=== PATIENT | female | born 1935 | race Caucasian/White ===

== ENCOUNTER → 2019-01-21 | Outpatient (CLI) | payer OTHER ==
[~2019-01-21] VITALS: Ht 160 cm; Wt 37.4 kg
[~2019-01-21] MED LIST: ALPRAZOLAM 0.50.5 M1 PO; ANORO ELLIPTA1 EACH INH; FOSAMAX 70 MG T70 MG PO; HYDROCODON-ACE1 EAC7 PO; LISINOPRIL2.5 MG PO; METFORMIN HCL500 MG PO; NEURONTIN100 MG PO; RAYOS5 MG PO; RESTORIL15 M1 PO; SERTRALINE HCL100 MG PO
[2019-01-21 13:55] VITALS: BP 104/63
--- NOTE | 2019-01-21 14:17 | NUR ---
Pain Clinic Assessment: 1. History of Osteoarthritis: HANDS History of Rheumatoid Arthritis: NONE 2. Height: 5 ft. 3 in. 160.0 cm. Weight: 82.4 lb. oz. 37.376 kg. Patient's BMI: 14.6 3. Vital Signs: BP: 104/63 Pulse: 102 Resp: 16 Temp: 02 Sat: 96 ECG Mon: 4. Pain Intensity: 0 SITTING 5. Fall Risk: Dizziness: N Needs help standing or walking: Y Fallen in the last 3 months: N Fall risk comments: 6. Patient on Blood Thinner: None 7. History of Hypertension: N 8. Opioid Therapy greater than 6 weeks: N Opiate Contract Signed: 9. Risk Assessment Tool Provided: LOW RISK 0/3 10. Functional Assessment Tool: 11. Recreational Drug Use: Never Drug Type: Tobacco Use: Never Smoker Tobacco Type: Amount or Packs/day: How Many Years: Alcohol Use: No Frequency: Quant:
--- NOTE | 2019-01-22 07:47 | HPC ---
[facility] [place] [address] PAIN MANAGEMENT CONSULTATION Name: RON DRIVER Room #: REG ENMA Wilcox#: [id number] Admission: 01/21/19 Attend Phys: Angel Bishop DO Discharge: Date of : 33 Report #: [id number] THIS REPORT FOR: //name// CC: [facility] physician/PCP Angel Nieto DATE OF SERVICE: 01/21/2019 CHIEF COMPLAINT: Low back pain and lower extremity pain. HISTORY OF PRESENT ILLNESS: As you know, the patient is a very pleasant 83-year-old female referred to our clinic for back pain that began spontaneously 12/03/2018. The patient states that she was in a forward flexed position when she sneezed, felt instantaneous low back pain, which ultimately took the patient to the Emergency Department. She was seen at [facility] for this back pain. She underwent imaging, which showed an L4 compression fracture and was established an outpatient appointment with one of the interventional radiologists to discuss the possibility of undergoing vertebral augmentation procedure. The patient states that she was evaluated by a physician with what she believes was Interventional Radiology and she was advised she is not a candidate for augmentation due to the posterior displaced fragment causing mild canal stenosis. She was then advised to follow up with her PCP. She was not offered any TLSO bracing or treatment at that visit, advised that there was nothing there could be done from an interventional standpoint. She followed up with her PCP who then referred the patient to our clinic to discuss options for treatment for the L4 compression fracture with mild retropulsion of the posterior fragment. The patient indicates pain is constant with intermittent brief and momentary exacerbations of symptoms. She describes the pain as shooting, sharp and stabbing, places current pain score at 0-10/10 depending on activity, daily average at 5/10, worst pain has been 10/10. The patient states that standing upright or putting any pressure on her leg exacerbate symptoms, sitting improves pain. She has been referred to our service to discuss treatment options for a spontaneous vertebral compression fracture at L4. PAST MEDICAL HISTORY: 1. Diabetes mellitus type 2. 2. Osteoporosis. 3. Depression. 4. Anxiety disorder. 5. Hypertension. 6. Diabetes mellitus type 2. 7. Insomnia. [address] [address] PAIN MANAGEMENT CONSULTATION Name: RON DRIVER [id number] Admission: 01/21/19 Attend Phys: Angel Bishop DO Discharge: Date of : 33 Report #: [id number] PAST SURGICAL HISTORY: None reported. SOCIAL HISTORY: The patient denies tobacco, alcohol, IV or illicit drug use. She is retired, retired years ago. She is accompanied by her and daughter present in room today. She is not receiving workmen's compensation or is trying to obtain disability benefit. She is not in litigation in regards to pain. REVIEW OF SYSTEMS: Positive for decrease in appetite, fatigue and weakness, wearing corrective eyewear, shortness of breath with walking or lying flat, hypertension, depression, diabetes mellitus type 2, slow to heal after cuts, bleeding and bruising tendencies, osteoporosis. All other review of systems negative per 12-point review of systems other than those listed in history of present illness. PAIN IMPACT SCORE: 47/70 indicating severe interference of daily activities secondary to pain. ALLERGIES: MORPHINE, BACTRIM, AMOXICILLIN. CURRENT MEDICATIONS: Temazepam 15 mg once a day, alendronate 70 mg per week, metformin 500 mg once a day, lisinopril 2.5 mg once a day, Anoro Ellipta 62.5/25 mcg inhaled once a day, gabapentin 100 mg 3 times a day, alprazolam 0.5 mg once a day, hydrocodone 5/325 one tab b.i.d. p.r.n., prednisone 5 mg once a day, sertraline 100 mg once a day. IMAGING: CT of the lumbar spine obtained 01/03/2019 shows moderate 40% acute compression fracture of the L4 vertebral body with posterior bony retropulsion resulting in mild central canal stenosis. There is mild 30%, chronic appearing compression deformity of L3 similar to x-rays of 04/25/2018. There is advanced degenerative changes of the lumbar spine, severe canal narrowing at L3-L4, moderate to severe central canal narrowing at L2-L3 and L4-L5, moderate to severe foraminal narrowing at the L5-S1 level. There is noted generalized bony demineralization, chronic pancreatitis, advanced diffuse calcific atherosclerosis also noted. PQRS: The patient has known arthritic changes of the lumbar spine, bilateral hands. No rheumatoid arthritis. She is placing pain score today anywhere from 9-10/10 depending on activity. She is a fall risk, has not had a fall in last 3 months. She is utilizing a roller walker for ambulation. She is not on blood thinners, but is treated for hypertension. She is on opioids, but not greater than 6 weeks. She has a low opiate addiction potential. Pain impact score remains 47/70. PHYSICAL EXAMINATION: VITAL SIGNS: Blood pressure 109/63, pulse is 102, respiratory rate 16 and [facility] [address] [place] [address] PAIN MANAGEMENT CONSULTATION Name: RON DRIVER Room #: REG ENMA Wilcox#: [id number] Admission: 01/21/19 Attend Phys: Angel Bishop DO Discharge: Date of : 33 Report #: [id number] unlabored. The patient is 96% on room air. Height 5 feet 3 inches tall, weight 82.4 pounds, BMI calculated 14.3. GENERAL: Well-developed, well-nourished, well-hydrated, thin, 83-year-old female, appears her stated age. She is in no acute distress, awake, alert and oriented x 3. Current pain score anywhere from 0-10/10 depending on activity. HEENT: Normocephalic, atraumatic. Pupils equal, round, reactive to light. NEUROLOGIC: Speech is fluent. The patient deemed a fair historian. LUNGS: Clear, no wheeze, rhonchi or rales. CARDIOVASCULAR: Tachycardic. No gallop, no rub. ABDOMEN: Soft, nontender, normal active bowel sounds. EXTREMITIES: Show no clubbing, no cyanosis, and no edema. MUSCULOSKELETAL: There is some palpatory tenderness noted over the paraspinal musculature of lower lumbar spine. No spinous process tenderness. There are no changes in skin color or texture overlying the lumbar spine. No ecchymosis. Lumbar provocation testing is met with increasing pain consistent with an L4 compression fracture that remains acute. Seated straight leg raising negative. Supine straight leg raising mildly positive on the right. Ynes's test negative. Modified Gaenslen's positive for axial low back pain. Ankle clonus negative. Babinski is negative. ASSESSMENT: 1. L4 compression fracture. 2. Severe central canal stenosis of lumbar spine. 3. Osteoporosis. 4. Intractable pain. PLAN: 1. The patient has been referred to our service by her primary care physician to discuss options for treatment given the findings of her recent CT examination. Treatment options for L4 compression fracture are as follows: We also discussed our concerns about the possibility of undergoing a lumbar epidural injection and we do not recommend this in a patient with an acute L4 compression fracture and known osteoporosis. This would be a significant contraindication. We discussed other options with the patient today, the following was discussed. 2. We discussed physical therapy along with medication management to maintain benefit and strength in the lumbar spine and pain medications to control pain with the fracture she currently has. We would not recommend this option, but did provide this as a potential treatment option as has been done in the past. We also discussed TLSO bracing with the [place] bracing system, the most tolerable of the bracing systems in our opinion. This in conjunction with medication management would offload the fracture weight allowing the fracture to heal in position with a 40% reduction in anterior wedging. Augmentation of the vertebral area, I agree with the previous physician is not amenable to either vertebroplasty or kyphoplasty given the posterior fracture with positioning within the central canal. This would preclude any augmentation procedures. [address] [address] PAIN MANAGEMENT CONSULTATION Name: RON DRIVER Room #: REG CLMadhuri Wilcox#: [id number] Admission: 01/21/19 Attend Phys: Angel Bishop DO Discharge: Date of : 33 Report #: [id number] After discussing the treatment options, the patient requested to begin with the TLSO bracing system and medication management. 3. The patient will be sent for TLSO bracing. We [facility] where they can size the patient today. We have taken the liberty of making the patient an appointment. She will go there from here today and be fitted for the device for the L4 compression fracture. The patient will need to wear this for at least 6 weeks. She will have to wear this while sitting and standing, but can remove it in a lying position. 4. We have taken the liberty of refilling Dr. Nieto's hydrocodone dosing. She can follow up with her PCP to continue this therapy. We have given the patient hydrocodone 5/325 one tab p.o. b.i.d. I have given the patient #60 tablets, no refills. The patient will watch for side effects of somnolence, decreased mental acuity, disorientation, confusion, mental slowing or constipation with use of the medication. If she notes any side effects, contact her PCP. 5. Given the patient's osteoporosis, her current dosing of prednisone and spontaneous compression fracture not only at the L4 level, which is acute, but the chronic L3 compression, she is not a candidate for epidural injections. The epidural injections as you are aware do provide some analgesic benefit, but also have a significant effect upon osteoblast activity and osteoclastic activity leading to further degradation of the vertebral structures. We would not recommend in this patient undergoing epidural injections unless there is no other option available and in this case TLSO bracing is the appropriate option. Vertebral compression fractures do not show any improvement in symptoms with epidural steroid injections as the injections are well beyond the vertebral body and do not provide any benefit from bony abnormalities. 6. We will see the patient back in followup visit in about 3-4 weeks. At that point, we will have the patient undergo x-ray imaging to determine if there has been some corticalization of the L4 compression. If there has been some corticalization will be returning her care at that point to the PCP to continue the TLSO bracing until full corticalization has been completed and then she can come out of the TLSO bracing system. We will see her back in 3 weeks for further evaluation. 7. We wish to thank Dr. Nieto for the opportunity to see the patient in consultation. We will keep you apprised of her response to treatment as we address this L4 compression fracture with conservative TLSO bracing utilizing the [place] system. Again, we wish to thank you for the opportunity to see the patient in consultation. <ELECTRONICALLY SIGNED> By: Angel Bishop DO 01/22/19 [id number] Angel Bishop DO /nt
== END ==
LOC: PAIN 08:19
DX: M48.56XA Collapsed vertebra, not elsewhere classified, lumbar region, initial encounter for fracture (principal); M48.062 Spinal stenosis, lumbar region with neurogenic claudication; M81.0 Age-related osteoporosis without current pathological fracture; G89.4 Chronic pain syndrome

== ENCOUNTER → 2019-02-11 | Outpatient (CLI) | payer OTHER ==
[~2019-02-11] VITALS: Ht 160 cm; Wt 41.1 kg
--- NOTE | ~2019-02-11 | HPC ---
[facility] [address] [place] [address] PAIN MANAGEMENT CONSULTATION Name: RON DRIVER Room #: REG ENMA JensenGreg#: [id number] Admission: 02/11/19 Attend Phys: Angel Bishop DO Discharge: Date of : 33 Report #: [id number] THIS REPORT FOR: //name// CC: [facility] physician/PCP Angel Bishop DATE OF SERVICE: 02/11/2019 REFERRING PHYSICIAN: Dr. Desiree Nieto. CHIEF COMPLAINT: Low back pain, lower extremity pain with paresthesias. HISTORY OF PRESENT ILLNESS: As you know, the patient is a very pleasant 83-year-old female referred to our service for chronic low back pain that began spontaneously on 01/03/2019. She was in a forward flexed position when she sneezed, felt instantaneous back pain. She sought evaluation through [facility] and found to have a compression fracture of L4 with retropulsion, which made it impossible for interventional treatment such as kyphoplasty or vertebroplasty. The patient was subsequently referred to our clinic as they could not be seen in the [facility]. We saw the patient in consultation and advised the patient the TLSO bracing is the only alternative treatment course for these fractures other than tincture of time and medication management. We opted for the TLSO bracing and medication therapy. She returns today in followup visit continuing to experience pain, but utilizing the TLSO brace. Unfortunately, the brace is not fitting appropriately. She is placing pain today at 9/10, exacerbated with any activities. She does not have any specific tenderness over the lumbar spine noted today, though pain is elicited with trying to stand from a seated position. There has been no new injury or trauma, but I am concerned that she may have experienced further fracturing of the L4 and possibly even one of either the L2 or L3 may have spontaneously fractured and I think further evaluation is necessary. ALLERGIES: MORPHINE, BACTRIM, AMOXICILLIN. CURRENT MEDICATIONS: Hydrocodone, temazepam, alendronate, metformin, lisinopril, Anoro Ellipta, gabapentin, alprazolam, prednisone, sertraline. SOCIAL HISTORY: The patient denies tobacco, alcohol, IV or illicit drug use. She is retired, retired years ago, accompanied by her present in room today. IMAGING: There is no new imaging available. PQRS: The patient has known arthritic changes of the lumbar spine, bilateral hands. No rheumatoid arthritis. She is placing pain intensity today at 9/10. She is a fall risk, but has not had a fall in the last 3 months[place] [address] PAIN MANAGEMENT CONSULTATION Name: RON DRIVER Room #: REG Madhuri Wilcox#: [id number] Admission: 02/11/19 Attend Phys: Angel Bishop DO Discharge: Date of : 33 Report #: [id number] blood thinners. She is hypertensive. She is on no chronic opioids, but does have a low opioid addiction potential. Pain impact score 44/70 indicating [id number] interference of daily activities secondary to pain. PHYSICAL EXAMINATION: VITAL SIGNS: Blood pressure 127/68, pulse 89, respiratory rate 18 and unlabored. The patient is 95% on room air. Height 5 feet 3 inches tall, weight 90.6 pounds, BMI calculated 16.1. GENERAL: Thin 83-year-old female appearing stated age, pain is rated today up to 9/10. HEENT: Normocephalic, atraumatic. Pupils equal, round, reactive to light. EXTREMITIES: Show no clubbing, no cyanosis, no edema. MUSCULOSKELETAL: The patient remains tender to palpation over the paraspinal musculature of lower lumbar spine. No spinous process tenderness. No ecchymosis overlying the lower lumbar area. The patient is in a TLSO brace, but is not fitting appropriately. Seated straight leg raising negative. Supine straight leg raising is positive only for axial back pain. There is some radiation of symptoms to the right buttock, but not in classic dermatomal distribution. Lumbar provocation testing is met with increasing pain as is standing from a seated position. ASSESSMENT: 1. L4 compression fracture (spontaneous in its development). 2. Severe central canal stenosis of lumbar spine. 3. Possible vertebral compression fracture of L3. 4. Osteoporosis. 5. Chronic intractable pain. PLAN: 1. The patient returns today in followup visit indicating that the TLSO brace has provided some benefit, but unfortunately it is not fitted appropriately, she needs to have this adjusted rapidly. I do not think this TLSO brace is providing much in the way of protection. Adjustments need to be made in this TLSO bracing. We advised the patient to contact the equipment company she received this device from and have adjustments made. I believe that was [facility] here in [place]. The patient was given the information to contact them for further adjustments. 2. The patient will undergo x-ray imaging of the right hip and the low back. The patient is complaining of right hip pain, though I believe this is more related to the patient's L4 compression fracture, I cannot rule out a possible occult fracture of the hip given the spontaneous nature of the fracture in the lumbar spine and her severe osteoporosis. X-ray of the hip will be obtained as quickly as possible. 3. We have requested the patient undergo x-ray imaging of the lumbar spine to further evaluate the L4 fracture. I am hopeful the patient will have shown some healing of the L4 area and she can begin to come out of the TLSO brace. Further [facility] [address] [place] [address] PAIN MANAGEMENT CONSULTATION Name: RON DRIVER Room #: REG [facility]..#: [id number] Admission: 02/11/19 Attend Phys: Angel Bishop DO Discharge: Date of : 33 Report #: [id number] evaluation is necessary before she can do so. If there is healing noted, we will contact the patient and advised her of the timing of the TLSO bracing removal. 4. I do have suspicion of possible vertebral compression fracture at L3. Previous imaging showed what appears to be a chronic L3 compression fracture, I wish to further evaluate this. The patient will undergo the x-ray imaging as indicated above for this evaluation. We will contact the patient what is the findings. 5. Due to the side effects of medications, it is difficult to dose this patient appropriately to relieve pain. We have agreed to give the patient [place] 5/325 to continue pain control. She was given a prescription today, but prior to leaving, the patient returned the prescription stating she did not need the medication as she had some at home. We recommended she continue this therapy. 6. The patient and I did discuss the possibility of treating her right hip pain. She is convinced that the symptoms she is experiencing currently are from the right hip. She does have known arthritic changes in the hip, which could be contributing to her symptoms as her gait has completely been altered with a TLSO brace in this fracture. We have agreed to provide the patient with an intra-articular hip injection today. We have advised the patient of the risks and benefits of the procedure. These risks include, but are not necessarily limited to bleeding, bruising, infection, worsening pain, no relief of pain, also risk of temporary or permanent muscle weakness, temporary or permanent nerve damage, possible paralysis and . The patient states understood and wished to proceed. 7. The patient will return to our clinic on an as needed basis. We will keep you apprised of the patient's findings on x-ray imaging. PROCEDURE: Right intraarticular hip injection under fluoroscopic guidance. DESCRIPTION OF PROCEDURE: After obtaining written consent, the patient was taken back to fluoroscopy suite, placed in a supine position. Image intensifier was brought into position over the patient's right hip and x-ray imaging was obtained. Imaging confirmed osteoarthritic changes of the hip and degenerative changes of the joint. We marked the area with a marker and sterilely prepped the area with chlorhexidine. A 27-gauge 1-1/4 inch needle was then used to anesthetize skin and subcutaneous tissue. A 22-gauge 3-1/2 inch spinal needle was advanced under fluoroscopic guidance towards the right hip. Image did confirm the needle positioning was appropriate. After negative aspiration for heme, 0.5 mL of Omnipaque was injected demonstrating excellent right hip arthrogram. After negative aspiration for heme, 3 mL of a solution containing 1 mL, 40 mg per mL, 40 mg total triamcinolone along with bupivacaine 0.5% injected slowly. Needle retracted detention, flushed with 1 mL of 1% lidocaine and then removed. Sterile bandage placed over injection site. There were no new motor deficits present in the lower extremities following procedure. [facility] [address] [place] [address] PAIN MANAGEMENT CONSULTATION Name: RON DRIVER Room #: REG ENMA Wilcox#: [id number] Admission: 02/11/19 Attend Phys: Angel Bishop DO Discharge: Date of : 33 Report #: [id number] The patient tolerated procedure well, carefully escorted to recovery room in stable condition. No apparent complications. After meeting discharge criteria, the patient discharged home. By: [id number] Angel Bishop DO /nt
[2019-02-11 12:30] VITALS: BP 127/68
--- NOTE | 2019-02-11 12:35 | NUR ---
Pain Clinic Assessment: 1. History of Osteoarthritis: HANDS SPINE History of Rheumatoid Arthritis: NONE 2. Height: 5 ft. 3 in. 160.0 cm. Weight: 90.6 lb. oz. 41.096 kg. Patient's BMI: 16.1 3. Vital Signs: BP: 127/68 Pulse: 89 Resp: 18 Temp: 02 Sat: 95 ECG Mon: 4. Pain Intensity: 9 STANDING, 0 SITTING 5. Fall Risk: Dizziness: N Needs help standing or walking: Y Fallen in the last 3 months: N Fall risk comments: 6. Patient on Blood Thinner: None 7. History of Hypertension: N 8. Opioid Therapy greater than 6 weeks: N Opiate Contract Signed: 9. Risk Assessment Tool Provided: LOW RISK 0/3 10. Functional Assessment Tool: 44/70 11. Recreational Drug Use: Never Drug Type: Tobacco Use: Never Smoker Tobacco Type: Amount or Packs/day: How Many Years: Alcohol Use: No Frequency: Quant:
== END | disposition home or self-care (01) ==
LOC: PAIN 10:26
DX: M25.551 Pain in right hip (principal); M16.11 Unilateral primary osteoarthritis, right hip; M48.061 Spinal stenosis, lumbar region without neurogenic claudication; M81.0 Age-related osteoporosis without current pathological fracture; G89.29 Other chronic pain; S32.048A Other fracture of fourth lumbar vertebra, initial encounter for closed fracture; I10 Essential (primary) hypertension; M19.90 Unspecified osteoarthritis, unspecified site; Z98.890 Other specified postprocedural states; Z79.899 Other long term (current) drug therapy; Z88.8 Allergy status to other drugs, medicaments and biological substances; Z79.891 Long term (current) use of opiate analgesic; X58.XXXA Exposure to other specified factors, initial encounter; Y93.89 Activity, other specified; Y92.89 Other specified places as the place of occurrence of the external cause; Y99.8 Other external cause status